=== PATIENT | female | born 1950 | race Hispanic/Latino ===

== ENCOUNTER 2018-07-24 05:30 | Day surgery (SDC) | payer MEDICARE ==
[2018-07-23 16:20] VITALS: BP 124/62
[2018-07-23 16:33] LABS: BASOPHILS % (AUTO) 0.7 % (0.0-5.0); EOSINOPHILS % (AUTO) 2.2 % (0.0-8.0); HEMATOCRIT 35.9 % (36-48); LYMPHOCYTES % (AUTO) 28.6 % (21.0-51.0); MEAN CORPUSCULAR HEMOGLOBIN 32.3 pg (27.0-33.0); MEAN CORPUSCULAR HGB CONC 34.7 g/dL (32.0-36.0); MEAN CORPUSCULAR VOLUME 93.1 fL (79-99); MONOCYTES % (AUTO) 6.2 % (3.0-13.0); NEUTROPHILS % (AUTO) 62.3 % (40.0-77.0); PLATELET COUNT (AUTO) 263 K/uL (130-400); RED BLOOD CELL COUNT(AUTO) 3.85 MIL/uL (4.00-5.50); RED CELL DISTRIBUTION WIDTH 13.6 % (11.0-15.5); WHITE BLOOD COUNT (AUTO) 8.9 K/uL (4.8-10.8)
[~2018-07-24] VITALS: Ht 154.9 cm; Wt 84.7 kg
[2018-07-24] VITALS (17 sets, daily range): BP systolic 95–140; BP diastolic 48–64
[~2018-07-24 05:30] MED LIST: AMLO5TAB7 PO; FERS325 PO; FLUT1AER IH; FURO20TA4 PO; LISI-613 PO; METF-445 PO; PRAV40TA3 PO
[2018-07-24] MEDS ORDERED: SODIUM CHLORIDE 0.9% 1000ML 1,000 ML IV ONE (05:46)
[2018-07-24] MEDS ORDERED: CEFAZOLIN SODIUM 1 GM VIAL ONE (05:46)
[2018-07-24] MEDS: CEFAZOLIN SODIUM 1 GM VIAL IVP ONE ×2 (06:27→08:00)
[2018-07-24] MEDS ORDERED: ACETIC ACID 0.25% 1,000 ML IRRIG.SOLN ONE (06:55)
[2018-07-24] MEDS ORDERED: STRONG IODINE SOLUTION 30ML BOTTLE ONE (06:55)
[2018-07-24] MEDS ORDERED: LIDOCAINE PF 2% 5ML ABBOJECT ONE (07:52)
[2018-07-24] MEDS ORDERED: DEXAMETHASONE SOD PHOSPHATE 10MG/ML 1ML VIAL ONE (07:52)
[2018-07-24] MEDS ORDERED: ONDANSETRON HCL 4 MG/2 ML VIAL ONE (07:52)
[2018-07-24] MEDS ORDERED: PROPOFOL 10 MG/ML 20ML VIAL IV ONE (07:53)
[2018-07-24] MEDS ORDERED: FENTANYL CITRATE PF 50 MCG/1 ML 2ML VIAL ONE (07:53)
[2018-07-24] MEDS ORDERED: MIDAZOLAM HCL 1 MG/ML 2ML VIAL ONE (07:53)
[2018-07-24] MEDS ORDERED: LACTATED RINGERS 1000ML 1,000 ML IV SCH (08:00)
[2018-07-24] MEDS ORDERED: EPHEDRINE SULFATE 50 MG/ML AMPULE ONE (08:17)
== END 2018-07-24 10:37 | disposition home or self-care (01) ==
LOC: DAH 05:30
PROVIDERS: ATTEND Obstetrics & Gynecology
DX: N81.2 Incomplete uterovaginal prolapse (principal); E78.5 Hyperlipidemia, unspecified; I10 Essential (primary) hypertension; E11.9 Type 2 diabetes mellitus without complications; Z83.3 Family history of diabetes mellitus; E66.01 Morbid (severe) obesity due to excess calories; Z68.33 Body mass index [BMI] 33.0-33.9, adult
CPT/HCPCS: 36415; 57520; 82948 ×3; 85025; 86850; 86900; 86901; 88307; A4510; A4600; J0690; J1100; J2001; J2250; J2405; J2704; J3010; J3490; J7030 ×2

== ENCOUNTER → 2019-01-09 | Outpatient (CLI) | payer MEDICARE ==
[~2019-01-09] MED LIST changes: -AMLO5TAB7 PO; +AMLO5TAB9 PO
== END | disposition home or self-care (01) ==
LOC: RAH 13:48
PROVIDERS: ATTEND Neurological Surgery
DX: M40.294 Other kyphosis, thoracic region (principal); M54.14 Radiculopathy, thoracic region; N28.1 Cyst of kidney, acquired
CPT/HCPCS: 72146